=== PATIENT | male | born 1990 | race Caucasian/White ===

== ENCOUNTER 2018-08-30 14:31 | Emergency (ER) | payer OTHER, SELFPAY ==
[2018-08-30 14:36] VITALS: BP 138/87; PULSE 106; RESP 15; TEMP 39.2; O2SAT 96; BMI 24.3
--- NOTE | 2018-08-30 14:49 | ED_ITS ---
HPI - URI/Sore Throat <STEVEN Maddox - Last Filed: 08/30/18 21:50> General Chief Complaint: Upper Respiratory Symptoms Stated Complaint: SWOLLEN THROAT, CAN'T TAKE DEEP BREATHS Time Seen by Provider: 08/30/18 14:49 Source: patient Mode of arrival: ambulatory Limitations: no limitations History of Present Illness HPI Narrative: [age] year old healthy male that is an everyday smoker here for complaint of having sore throat fever and cough over the past 4 days. He reports that he has had swelling to the right side of his neck and also throat that is very discomfort below. He also reports that he has chills. Positive p.o. intake. He also states he has had a cough but is nonproductive. He denies any stressors relievers of his pain. MD Complaint: cough and sore throat Related Data Home Medications Medication Instructions Recorded Confirmed ibuprofen 1 dose PO PRN PRN 08/30/18 08/30/18 naproxen sodium [Aleve] 220 mg PO PRN PRN 08/30/18 08/30/18 Previous Rx's Medication Instructions Recorded amoxicillin-pot clavulanate 1 tab PO BID #20 tab 08/30/18 prednisone 40 mg PO DAILY #8 tab 08/30/18 Allergies Allergy/AdvReac Type Severity Reaction Status Date / Time No Known Drug Allergies Allergy Verified 08/30/18 14:35 Review of Systems <STEVEN Maddox - Last Filed: 08/30/18 21:50> Constitutional Reports chills, Denies fever(s), Denies lethargy and Denies weakness Eyes Denies change in vision, Denies eye discharge, Denies irritation and Denies loss of vision ENT Ears, Nose, Mouth, and Throat: Reports sore throat and Denies throat swelling Cardiovascular Denies chest pain, Denies irregular heart rhythm, Denies lightheadedness, Denies palpitations and Denies orthopnea Respiratory Reports cough and Denies wheezing Gastrointestinal Gastrointestinal: Denies abdominal pain, Denies change in bowel habits, Denies diarrhea, Denies nausea and Denies vomiting Genitourinary Denies hematuria, Denies flank pain, Denies urinary incontinence and Denies urinary urgency Musculoskeletal Denies back pain, Denies muscle weakness, Denies numbness and Denies tingling Integumentary/Breasts Denies pruritus, Denies erythema, Denies rash and Denies wounds Neurologic Denies confusion, Denies loss of vision, Denies numbness, Denies tingling and Denies weakness Psychiatric Denies anxiety, Denies confusion, Denies depression, Denies homicidal ideation and Denies suicidal ideation Endocrine Denies palpitations Hematologic/Lymphatic Denies easy bruising Allergic/Immunologic Denies urticaria, Denies throat swelling and Denies wheezing Exam <STEVEN Maddox - Last Filed: 08/30/18 21:50> Initial Vital Signs Initial Vital Signs: Vital Signs Temperature 102.5 F H 08/30/18 14:36 Pulse Rate 106 H 08/30/18 14:36 Respiratory Rate 15 08/30/18 14:36 Blood Pressure 138/87 08/30/18 14:36 Pulse Oximetry 96 08/30/18 14:36 Const General: cooperative and well developed Nutritional Appearance: well nourished Orientation: alert, awake, oriented x3 and not confused HENUT Mouth: oral mucosae normal and moist mucous membranes Throat: abnormal tonsil bilaterally erythema and hypertrophy and uvula laterally displaced to the left Eyes Conjunctivae: conjunctivae normal Sclera: sclerae normal Pupils: PERRL EOM: EOM intact bilaterally Resp Effort & Inspection: normal respiratory effort, able to speak in complete sentences, no respiratory distress and no use of accessory muscles Auscultation: clear to auscultation bilaterally, no rales, no rhonchi and no wheezes Cardio Rate: regular rate Rhythm: regular rhythm Heart Sounds: no click, no gallops, no murmurs and no rubs Skin General: no rashes or lesions noted, No jaundice and No petechiae Neuro General: alert, oriented x3, gait normal and no focal motor deficits Speech: speech normal <Nena Guzman DO - Last Filed: 08/31/18 08:34> Initial Vital Signs Initial Vital Signs: Vital Signs Temperature 102.5 F H 08/30/18 14:36 Pulse Rate 106 H 08/30/18 14:36 Respiratory Rate 15 08/30/18 14:36 Blood Pressure 138/87 08/30/18 14:36 Pulse Oximetry 96 08/30/18 14:36 Course <STEVEN Maddox - Last Filed: 08/30/18 21:50> Orders Ordered: Discontinued Medications Acetaminophen (Tylenol) 650 mg PO NOW ONE Stop: 08/30/18 15:29 Last Admin: 08/30/18 16:01 Dose: 650 mg Dexamethasone 20 mg/ Sodium (Chloride) 52 mls @ 208 mls/hr IV NOW ONE Stop: 08/30/18 15:29 Last Infusion: 08/30/18 16:29 Dose: 0 mls/hr Admin: 08/30/18 16:00 Dose: 208 mls/hr Sodium Chloride (Normal Saline 0.9%) 1,000 mls @ 1,000 mls/hr IV BOLUS ONE Stop: 08/30/18 16:27 Last Infusion: 08/30/18 17:23 Dose: 0 mls/hr Admin: 08/30/18 15:59 Dose: 1,000 mls/hr Sodium Chloride (Normal Saline 0.9%) 1,000 mls @ 1,000 mls/hr IV BOLUS ONE Stop: 08/30/18 16:27 Last Infusion: 08/30/18 18:04 Dose: 0 mls/hr Admin: 08/30/18 15:59 Dose: 1,000 mls/hr Ampicillin Sodium/Sulbactam (Sodium 3 gm/ Sodium Chloride) 100 mls @ 100 mls/ hr IV NOW ONE Stop: 08/30/18 15:33 Last Infusion: 08/30/18 17:23 Dose: 0 mls/hr Admin: 08/30/18 15:59 Dose: 100 mls/hr Vital Signs - 8 hr 08/30/18 14:36 08/30/18 17:09 08/30/18 18:15 Temperature 102.5 F H 98.8 F Pulse Rate 106 H 80 75 Respiratory Rate 15 14 18 Blood Pressure 138/87 Blood Pressure [Left Arm] 144/76 H 140/71 Pulse Oximetry 96 100 100 <Nena Guzman, - Last Filed: 08/31/18 08:34> Orders Ordered: Discontinued Medications Acetaminophen (Tylenol) 650 mg PO NOW ONE Stop: 08/30/18 15:29 Last Admin: 08/30/18 16:01 Dose: 650 mg Dexamethasone 20 mg/ Sodium (Chloride) 52 mls @ 208 mls/hr IV NOW ONE Stop: 08/30/18 15:29 Last Infusion: 08/30/18 16:29 Dose: 0 mls/hr Admin: 08/30/18 16:00 Dose: 208 mls/hr Sodium Chloride (Normal Saline 0.9%) 1,000 mls @ 1,000 mls/hr IV BOLUS ONE Stop: 08/30/18 16:27 Last Infusion: 08/30/18 17:23 Dose: 0 mls/hr Admin: 08/30/18 15:59 Dose: 1,000 mls/hr Sodium Chloride (Normal Saline 0.9%) 1,000 mls @ 1,000 mls/hr IV BOLUS ONE Stop: 08/30/18 16:27 Last Infusion: 08/30/18 18:04 Dose: 0 mls/hr Admin: 08/30/18 15:59 Dose: 1,000 mls/hr Ampicillin Sodium/Sulbactam (Sodium 3 gm/ Sodium Chloride) 100 mls @ 100 mls/ hr IV NOW ONE Stop: 08/30/18 15:33 Last Infusion: 08/30/18 17:23 Dose: 0 mls/hr Admin: 08/30/18 15:59 Dose: 100 mls/hr Vital Signs - 8 hr 08/30/18 14:36 08/30/18 17:09 08/30/18 18:15 Temperature 102.5 F H 98.8 F Pulse Rate 106 H 80 75 Respiratory Rate 15 14 18 Blood Pressure 138/87 Blood Pressure [Left Arm] 144/76 H 140/71 Pulse Oximetry 96 100 100 MDM - URI/Sore Throat <STEVEN Maddox - Last Filed: 08/30/18 21:50> Lab Data Point of Care Testing Rapid Strep A Positive MDM Narrative Medical decision making narrative: Strep test was obtained and was positive. Signs and symptoms presents as a [employer]. He was given fluids and antibiotics in the emergency room. He 20 of Decadron was given IV. He states that after fluids and Decadron he has feeling much better. He is placed on Augmentin and put on a prednisone for 5 days. Discussed case with Dr. stacey IQBAL who concurs with plan. Patient to follow up with ENT. Patient to call office tomorrow to schedule follow-up appointment. [id number] Tylenol or Motrin as needed for any discomfort. Salt water gargles. Plenty of fluids. Minimize smoking. For any worsening symptoms return emergency room. <Nena Guzman DO - Last Filed: 08/31/18 08:34> Lab Data Point of Care Testing Rapid Strep A Positive Discharge Plan Departure Patient Disposition: Home Clinical Impression: Abscess, peritonsillar Discharge Date/Time: 08/30/18 18:39 Interventions: ED Discharge Assessment Last Done: 08/30/18 18:39 Instructions: DI for Peritonsillar Abscess -- Adult Activity Restrictions/Additional Instructions: Strep test was obtained was positive for strep. Signs and symptoms are consistent with strep pharyngitis and peritonsillar abscess. UA given antibiotics in the emergency room along with steroids to decrease inflammation and fight infection. Urine be given prescription for oral antibiotics and steroids. Plenty of fluids and rest. Oral steroids were also prescribed to help with inflammation. Call into the office tomorrow to schedule follow-up appointment. For any worsening symptoms return to the emergency room. Prescriptions: New amoxicillin-pot clavulanate 875-125 mg tablet 1 tab PO BID Qty: 20 RF: 0 prednisone 20 mg tablet 40 mg PO DAILY Qty: 8 RF: 0 No Action naproxen sodium [Aleve] 220 mg Tablet 220 mg PO PRN PRN (Reason: Fever Or Pain) RF: 0 ibuprofen 200 mg Tablet 1 dose PO PRN PRN (Reason: Fever Or Pain) RF: 0 Referrals: Everardo Hardin MD [Physician] - <Nena Guzman DO - Last Filed: 08/31/18 08:34> Cosign ED Attending Cosignature Attestation: I was immediately available in the department for consultation, treatment plan was discussed. This documentation has been reviewed and I agree with assessment and plan. Supervised by Nena Guzman DO
--- NOTE | 2018-08-30 15:27 | DI.RAD.S_ITS ---
PROCEDURE: XR CHEST 2V INDICATIONS: Fever cough sore throat TECHNIQUE: 2 views of the chest were acquired. COMPARISON: [facility], , CHEST 2 VIEW, 04/22/2010, 20:37. FINDINGS: Surgical changes and devices: None. Lungs and pleura: No pleural effusions or pneumothorax. Lungs are clear. Mediastinum: Mediastinal contours are normal. Heart size is normal. Bones and chest wall: No suspicious bony abnormalities. Soft tissues appear unremarkable. IMPRESSION: No acute cardiopulmonary disease. Dictated by: Keke Rosas M.D. on 08/30/2018 at 16:35 Approved by: Keke Rosas M.D. on 08/30/2018 at 16:35
[2018-08-30] MEDS: AMPICILLIN/SULBACTAM 3 GM 3 GM in SODIUM CHLORIDE 0.9% 100 ML IV (15:59)
[2018-08-30] MEDS: SODIUM CHLORIDE 0.9% 1,000 ML 1000 ML IV ×2 (15:59)
[2018-08-30] MEDS: DEXAMETHASONE 20 MG in SODIUM CHLORIDE 0.9% 50 ML 208 ML IV (16:00)
[2018-08-30] MEDS: ACETAMINOPHEN 325 MG TABLET 650 MG PO (16:01)
[2018-08-30 17:09] VITALS: BP 144/76; PULSE 80; RESP 14; O2SAT 100
[2018-08-30 18:15] VITALS: BP 140/71; PULSE 75; RESP 18; TEMP 37.1; O2SAT 100
== END 2018-08-30 18:39 | disposition home or self-care (01) ==
PROVIDERS: Emergency Provider Nurse Practitioner Family
DX: J36 Peritonsillar abscess (principal)
CPT/HCPCS: 36591; 71046; 87880; 96361; 96365; 96366; 96368; 99283; 99284; J0295; J1100

== ENCOUNTER → 2019-04-08 06:20 | Outpatient (CLI) | payer OTHER, SELFPAY ==
--- NOTE | 2019-04-08 06:23 | DI.MRI.S_ITS ---
PROCEDURE: MR KNEE LT WO CON INDICATIONS: Left knee pain and swelling TECHNIQUE: Noncontrast sagittal PD fast spin echo and T2 fast spin echo with fat saturation, sagittal 3-D FLASH with fat saturation; coronal T1 spin echo and PD fast spin echo with fat saturation, and axial PD fast spin echo with fat saturation through the knee. COMPARISON: None. FINDINGS: Image quality: Excellent. Menisci: Truncated appearance involving anterior horn and body of medial meniscus is seen, suggestive of prior partial meniscectomy, suggest clinical correlation. There is no evidence of recurrent tear in remnant of medial meniscus. Lateral meniscus is intact. The meniscal root ligaments appear intact. Cruciate ligaments: The anterior and posterior cruciate ligaments appear intact. Medial structures: The medial collateral ligament appears intact. The posterior oblique ligament, semimembranosus tendon insertions, oblique popliteal ligament, and meniscocapsular junction appear intact. Visualized portions of the pes anserinus tendons appear normal. No abnormal bursal fluid. Lateral structures: The lateral collateral ligament, long and short heads of the biceps femoris tendon appear intact. The popliteus tendon appears normal; the popliteofibular ligament appears intact. The posterosuperior and anteroinferior popliteomeniscal fascicles appear intact. The arcuate and fabellofibular ligaments appear intact, on either side of the lateral inferior geniculate artery. Iliotibial band appears normal. Anterior structures: The quadriceps and patellar tendons appear intact. Patellar alignment is normal. No femoral trochlear dysplasia or ventral trochlear prominence. No edema in the infrapatellar fat pad. Bones and cartilage: No bone marrow contusions or fractures. The cartilage of the medial and lateral femorotibial compartments appears normal in thickness. Focal low to moderate grade chondromalacia involving the medial facet of patella cartilage is seen. There is also low-grade chondromalacia involving lateral facet of patella cartilage. Joint space: There is small amount of joint fluid. No gross loose body. A small popliteal cyst is seen.. Normal appearing synovial plicae are incidentally noted. IMPRESSION: 1. Finding is suggestive of prior partial medial meniscectomy. No evidence of recurrent tear in remnant of medial meniscus. 2. Cruciate ligaments are intact. 3. 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 No marrow edema. No fracture or dislocation. Small amount of joint effusion a small popliteal cyst. Dictated by: Sourav Caballero M.D. on 04/08/2019 at 9:00 Approved by: Sourav Caballero M.D. on 04/08/2019 at 9:04
== END ==
PROVIDERS: PCP Nurse Practitioner; Visit Provider Nurse Practitioner
DX: M25.562 Pain in left knee (principal); M22.42 Chondromalacia patellae, left knee; M71.22 Synovial cyst of popliteal space [Baker], left knee; M25.462 Effusion, left knee
CPT/HCPCS: 73721

== ENCOUNTER → 2019-04-10 13:20 | Outpatient (CLI) | payer OTHER, SELFPAY ==
[2019-04-10 13:39] LABS: Hemoglobin 16.9 g/dL (13.5-17.5); Mean Corpuscular HGB Conc 34.5 % (30-36); Mean Corpuscular Hemoglobin 32.4 PG (26-34); Mean Corpuscular Volume 93.8 fL (80-100); Platelet Count 200 X10^3/uL (150-400); Red Blood Cell Count 5.22 X10^6/uL (4.5-5.9); Red Cell Distribution Width 12.9 % (11.6-14.8)
[2019-04-10 13:59] LABS: Neutrophils Absolute Manual 3050 /uL (3000-5900); RBC Morphology Normal Morphology; Total Cells Counted 100
[2019-04-10 14:27] LABS: Alanine Aminotransferase 60 IU/L (21-72); Albumin 4.8 g/dL (3.5-5.0); Albumin Globulin Ratio 1.8 (1.0-2.8); Alkaline Phosphatase 68 U/L (38-126); Aspartate Aminotransferase 44 IU/L (17-59); Blood Urea Nitrogen 12 mg/dL (9-20); Calcium 9.8 mg/dL (8.4-10.2); Carbon Dioxide 24 mmol/L (22-32); Chloride 103 mmol/L (98-107); Cholesterol 268 mg/dL (140-199); Estimated Glomerular Filt Rate > 60.0 mL/min (>60); Globulin 2.7 g/dL (1.7-4.1); Glucose 97 mg/dL (70-100); HDL Cholesterol 57 mg/dL (40-60); HEMOLYSIS < 15 (0-50); LDL Cholesterol Calculated 179 mg/dL (<100); Potassium 4.1 mmol/L (3.4-5.1); Sodium 138 mmol/L (137-145); Total Protein 7.5 g/dL (6.3-8.2); Triglycerides 161 mg/dL (35-150)
[2019-04-10 14:56] LABS: TSH w/ Reflex to FT4 2.58 uIU/mL (0.47-4.68)
== END ==
PROVIDERS: PCP Nurse Practitioner; Visit Provider Nurse Practitioner
DX: F90.9 Attention-deficit hyperactivity disorder, unspecified type (principal); J36 Peritonsillar abscess; Z00.00 Encounter for general adult medical examination without abnormal findings
CPT/HCPCS: 36415; 80053; 80061; 84443; 85025

== ENCOUNTER 2020-10-22 13:49 | Emergency (ER) | payer OTHER, SELFPAY ==
[2020-10-22 14:03] VITALS: BP 140/88; PULSE 75; RESP 15; TEMP 36.8; O2SAT 99; BMI 25.8
--- NOTE | 2020-10-22 16:41 | PC.NURSE ---
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 The numbness is moving up his legs. He states that sensation is slightly more numb on his left leg than his right but notices more numbness on his right hand since he is right handed. He denies lightheadedness or dizziness but does have blurry vision in both eyes
--- NOTE | 2020-10-22 16:56 | ED_ITS ---
HPI - Extremity Problem General Chief complaint: Extremity Problem,Nontraumatic Stated complaint: numbness in hands and feet [id number] Time Seen by Provider: 10/22/20 15:51 Source: patient Mode of arrival: Ambulatory Limitations: no limitations History of Present Illness HPI Narrative: The patient is a 30-year-old male who presents with bilateral hand numbness in bilateral feet numbness. 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 He denies any recent injury. It started with bilateral hand is numbness he says it is getting difficult for him to right to get cards out of his wallet. He called to make an appointment with his doctor and then he started having bilateral foot numbness. He went to see his provider today who based on his symptoms did not see him but sent him straight to the emergency department for further evaluation. He actually says his feet numbness has gone up both of his legs. He denies any recent injury or illness. He has not had any nausea vomiting or diarrhea. He has had no recent immunizations. He has no other complaints. He has no difficulty walking or ambulating no balance problems. He says sometimes he moves and he feels a jolt from his toes to his head Pain Consistency: constant Location: upper extremity and lower extremity Quality: burning Relieving factors: nothing Exacerbating factors: nothing Related Data Home Medications Medication Instructions Recorded Confirmed ibuprofen 1 dose PO PRN PRN 08/30/18 10/22/20 naproxen sodium [Aleve] 220 mg PO PRN PRN 08/30/18 10/22/20 Previous Rx's Medication Instructions Recorded varenicline 0.5 mg (11)-1 mg (42) See Rx Instructions PO PER PKG DIR 03/29/19 tablets in a dose pack #53 each Allergies Allergy/AdvReac Type Severity Reaction Status Date / Time No Known Drug Allergies Allergy Verified 10/22/20 14:03 Review of Systems Review of Systems ROS Unobtainable: All systems reviewed & are unremarkable except as noted in HPI and below Constitutional Constitutional: Denies chills, Denies fever(s), Denies lethargy and Reports weakness ENT Ears, Nose, Mouth, and Throat: Denies disequilibrium Cardiovascular Cardiovascular: Denies chest pain, Denies irregular heart rhythm, Denies lightheadedness, Denies palpitations, Denies dyspnea, Denies dyspnea on exertion and Denies orthopnea Respiratory Respiratory: Denies cough, Denies dyspnea, Denies dyspnea on exertion and Denies wheezing Gastrointestinal Gastrointestinal: Denies abdominal pain, Denies change in bowel habits, Denies diarrhea, Denies nausea and Denies vomiting Musculoskeletal Musculoskeletal: Reports as per HPI and Reports numbness Integumentary/Breasts Skin/Breast: Denies pruritus, Denies erythema, Denies rash and Denies wounds Neurologic Neurologic: Reports numbness, Denies disequilibrium and Reports weakness Endocrine Endocrine: Denies palpitations Hematologic/Lymphatic Hematologic/Lymphatic: Denies easy bruising Allergic/Immunologic Allergic/Immunologic: Denies wheezing Patient History Medical History ADHD (~2011) Chronic back pain (~2001) Foot pain (~2012) Plantar fasciitis Shoulder pain (~2014) Family History Father Cancer Hypertension Stroke Mother Hypertension Mental health problem Social History Smoking Status: Current every day smoker Tobacco: How many years used: 12 quit status: considering quitting second hand exposure: No alcohol intake: current ([employer]) substance use type: does not use Smoking Status: Current every day smoker alcohol intake frequency: a few times a month Substance Use Type: does not use Exam Initial Vital Signs Initial Vital Signs: Vital Signs Temperature 98.3 F 10/22/20 14:03 Pulse Rate 75 10/22/20 14:03 Respiratory Rate 15 10/22/20 14:03 Blood Pressure 140/88 10/22/20 14:03 Pulse Oximetry 99 10/22/20 14:03 GENERAL: Well-appearing, well-nourished and in no acute distress. HEENT: Head atraumatic,EOMI, pupils reactive, face symmetric, moist mucous membranes NECK: No vertebral tenderness full flexion extension and rotation CARDIOVASCULAR: Regular rate and rhythm without murmurs, rubs or gallops. RESPIRATORY: Breath sounds equal bilaterally, no wheezes rales or rhonchi. ABDOMEN: Soft, nontender. Normoactive bowel sounds all 4 quadrants. No guarding or rebound. EXTREMITIES: Normal range of motion, no clubbing or edema. Neurovascularly int act NEUROLOGICAL: Alert and oriented x4.Normal gait and speech. Cranial nerves II through XII grossly intact. Good [id number]-sthm, good hgil-cv-soro, strength equal bilaterally, no dysarthria or aphasia, , no visual changes, no facial droop he does have difficult time getting a card out of his wallet fine motor seems to be decreased in his hands. He has slight decreased of soft touch in the lower extremities. DTR 2/4 all 4 extremities SKIN: Warm, dry, no laceration, no petechiae, no rashes or lesions. Course Orders Ordered: ED Orders 10/22/20 17:11 CT cervical spine wo con Stat 10/22/20 17:41 Complete Blood Count AUTO DIFF Stat Comprehensive Metabolic Panel Stat Vital Signs Vital signs: Vital Signs - 8 hr 10/22/20 14:03 10/22/20 19:04 Temperature 98.3 F Pulse Rate 75 71 Respiratory Rate 15 12 Blood Pressure 140/88 159/89 H Pulse Oximetry 99 97 MDM - Extremity (Nontraumatic) Lab Data Result diagrams: 10/22/20 17:41 10/22/20 17:41 Labs: Lab Results 10/22/20 10/22/20 Range/Units 17:41 17:41 WBC 6.3 (4.5-11.0) X10^3/uL RBC 4.65 (4.5-5.9) X10^6/uL Hgb 15.4 (13.5-17.5) g/dL Hct 44.1 (41-53) % MCV 94.9 (80-100) fL MCH 33.1 (26-34) PG MCHC 34.8 (30-36) % RDW 13.4 (11.6-14.8) % Plt Count 208 (150-400) X10^3/uL Neut % (Auto) 60.7 (50-75) % Lymph % (Auto) 30.8 (25-40) % Banks % (Auto) 5.1 (3-14) % Eos % (Auto) 3.0 (2-4) % Baso % (Auto) 0.4 (0-2) % Neut # (Auto) 3800 (6172-2737) /uL Lymph # (Auto) 1900 (5895-3046) /uL Banks # (Auto) 300 (0-900) /uL Eos # (Auto) 200 (0-450) /uL Baso # (Auto) 0 (0-100) /uL Sodium 137 (137-145) mmol/L Potassium 4.0 (3.4-5.1) mmol/L Chloride 103 (98-107) mmol/L Carbon Dioxide 29 (22-32) mmol/L BUN 21 H (9-20) mg/dL Creatinine 0.90 (0.66-1.25) mg/dL Estimated GFR > 60.0 (>60) mL/min BUN/Creatinine Ratio 23.3 H (6-22) Glucose 113 H (70-100) mg/dL Calcium 9.3 (8.4-10.2) mg/dL Total Bilirubin 0.3 (0.2-1.3) mg/dL AST 26 (17-59) IU/L ALT 25 (<50) IU/L Alkaline Phosphatase 64 (38-126) U/L Total Protein 7.4 (6.3-8.2) g/dL Albumin 4.5 (3.5-5.0) g/dL Globulin 2.9 (1.7-4.1) g/dL Albumin/Globulin Ratio 1.6 (1.0-2.8) Imaging Data CT - cervical spine: Radiologist's Impression: PROCEDURE: CT CERVICAL SPINE WO CON INDICATIONS: bilateral hand numbness no injury TECHNIQUE: Noncontrast 3 mm thick sections acquired from the skull base to the T4 level. Sagittal and coronal reformats were then constructed. For radiation dose reduction, the following was used: automated exposure control, adjustment of mA and/or kV according to patient size. COMPARISON: None. FINDINGS: Image quality: Excellent. Bones: No fractures or dislocations. Visualized superior ribs are intact. Soft tissues: Prevertebral soft tissues are normal in thickness. No paravertebral hematomas. No apical pneumothoraces. IMPRESSION: No fracture. Nonemergent outpatient follow-up cervical spine MRI is recommended for further assessment. Dictated by: Jona Acosta M.D. on 10/22/2020 at 17:34 MDM Narrative Medical decision making narrative: Patient does have some obvious fine motor problems with his hands. He does have some ascending numbness and tingling but not weakness of his lower extremities. At this time it is been ongoing for a number of weeks but does seem to be progressing. Blood work is overall reassuring. I do recommend that he have MRI of his entire spine including cervical thoracic and lumbar as an outpatient. He may require further workup as well. Differential diagnosis includes Guillain-Southington, MS, transient myelitis. Does not seem to be the right pattern for Guillain-Southington starting in the hands although it can. Discussed case with Dr. Sparrow who will send his provider cherrie for close follow-up with patient I discussed all findings with the patient, Education has been performed regarding treatment plan, diagnosis, warning signs and symptoms and all concerns have been addressed. Verbally agree with and understood all of the above. Discharge Plan Departure Patient Disposition: Home Clinical Impression: Peripheral neuropathy Qualifiers: Peripheral neuropathy type: polyneuropathy, other Qualified Code(s): G62.89 - Other specified polyneuropathies Instructions: DI for Peripheral Neuropathy Activity Restrictions/Additional Instructions: *You have been diagnosed with peripheral neuropathy *What to do: At this time I recommend he follow up with her primary care provider and have MRI of your full spine urgent only. Please monitor for any worsening weakness, numbness or tingling *Continue to take medications as directed *Follow up with your primary care provider in 2-3 days *Return to ER if you should have increasing weakness inability to hold objects in hands, progressive numbness tingling or weakness going up both legs, loss of stool or urine or any new, worsening or concerning symptoms Prescriptions: No Action Chantix Starting Month Box 0.5 mg (11)- 1 mg (42) tablets,dose pack See Rx Instructions PO PER PKG DIR Qty: 53 RF: 0 naproxen sodium [Aleve] 220 mg Tablet 220 mg PO PRN PRN (Reason: Fever Or Pain) RF: 0 ibuprofen 200 mg Tablet 1 dose PO PRN PRN (Reason: Fever Or Pain) RF: 0 Referrals: Naye Mendoza ARNP [Primary Care Provider] -
--- NOTE | 2020-10-22 17:11 | DI.CT.S_ITS ---
PROCEDURE: CT CERVICAL SPINE WO CON INDICATIONS: bilateral hand numbness no injury TECHNIQUE: Noncontrast 3 mm thick sections acquired from the skull base to the T4 level. Sagittal and coronal reformats were then constructed. For radiation dose reduction, the following was used: automated exposure control, adjustment of mA and/or kV according to patient size. COMPARISON: None. FINDINGS: Image quality: Excellent. Bones: No fractures or dislocations. Visualized superior ribs are intact. Soft tissues: Prevertebral soft tissues are normal in thickness. No paravertebral hematomas. No apical pneumothoraces. IMPRESSION: No fracture. Nonemergent outpatient follow-up cervical spine MRI is recommended for further assessment. Dictated by: Jona Acosta M.D. on 10/22/2020 at 17:34 Approved by: Jona Acosta M.D. on 10/22/2020 at 17:36
[2020-10-22 17:47] LABS: Add Manual Diff / Slide Review NO; Basophils Absolute Auto 0 /uL (0-100); Basophils Percent Auto 0.4 % (0-2); Eosinophils Absolute Auto 200 /uL (0-450); Hematocrit 44.1 % (41-53); Hemoglobin 15.4 g/dL (13.5-17.5); Lymphocytes Absolute Auto 1900 /uL (1100-4500); Lymphocytes Percent Auto 30.8 % (25-40); Mean Corpuscular HGB Conc 34.8 % (30-36); Mean Corpuscular Hemoglobin 33.1 PG (26-34); Mean Corpuscular Volume 94.9 fL (80-100); Monocytes Absolute Auto 300 /uL (0-900); Monocytes Percent Auto 5.1 % (3-14); Neutrophils Absolute Auto 3800 /uL (1500-7000); Neutrophils Percent Auto 60.7 % (50-75); Platelet Count 208 X10^3/uL (150-400); Red Blood Cell Count 4.65 X10^6/uL (4.5-5.9); Red Cell Distribution Width 13.4 % (11.6-14.8); White Blood Cell Count 6.3 X10^3/uL (4.5-11.0)
[2020-10-22 18:02] LABS: Alanine Aminotransferase 25 IU/L (<50); Albumin 4.5 g/dL (3.5-5.0); Albumin Globulin Ratio 1.6 (1.0-2.8); Alkaline Phosphatase 64 U/L (38-126); Aspartate Aminotransferase 26 IU/L (17-59); BUN Creatinine Ratio 23.3 (6-22); Bilirubin Total 0.3 mg/dL (0.2-1.3); Blood Urea Nitrogen 21 mg/dL (9-20); Calcium 9.3 mg/dL (8.4-10.2); Carbon Dioxide 29 mmol/L (22-32); Chloride 103 mmol/L (98-107); Estimated Glomerular Filt Rate > 60.0 mL/min (>60); Globulin 2.9 g/dL (1.7-4.1); Glucose 113 mg/dL (70-100); HEMOLYSIS < 15 (0-50); Sodium 137 mmol/L (137-145); Total Protein 7.4 g/dL (6.3-8.2)
[2020-10-22 19:04] VITALS: BP 159/89; PULSE 71; RESP 12; O2SAT 97
== END 2020-10-22 19:06 | disposition home or self-care (01) ==
PROVIDERS: Emergency Provider Emergency Medicine; PCP Nurse Practitioner
DX: G62.89 Other specified polyneuropathies (principal); R53.1 Weakness
CPT/HCPCS: 36415; 72125; 80053; 85025; 99281; 99284

== ENCOUNTER → 2020-10-24 08:10 | Outpatient (CLI) | payer OTHER, SELFPAY ==
[2020-10-24 09:11] LABS: Cholesterol 220 mg/dL (140-199); HDL Cholesterol 41 mg/dL (40-60); LDL Cholesterol Calculated 149 mg/dL (<100); Triglycerides 149 mg/dL (35-150)
[2020-10-24 09:24] LABS: Free T4, Direct Thyroxine 0.87 ng/dL (0.78-2.19)
[2020-10-24 09:38] LABS: Thyroid Stimulating Hormone 1.82 uIU/mL (0.47-4.68)
== END ==
PROVIDERS: PCP Nurse Practitioner; Referring Provider Nurse Practitioner; Visit Provider Nurse Practitioner
DX: Z00.00 Encounter for general adult medical examination without abnormal findings (principal)
CPT/HCPCS: 36415; 80061; 84439; 84443; 84481

== ENCOUNTER → 2020-10-28 16:38 | Outpatient (CLI) | payer OTHER, SELFPAY ==
--- NOTE | 2020-10-28 16:41 | DI.MRI.S_ITS ---
PROCEDURE: MR CERVICAL SPINE WO/W CON INDICATIONS: worsening neuropathic pain TECHNIQUE: Noncontrast sagittal T1 spin echo and T2 fast spin echo, sagittal STIR, foraminal oblique sagittal T2 fast spin echo, axial gradient echo or T2 fast spin echo through the cervical spine. After the administration of contrast, axial and sagittal T1 spin echo with fat saturation through the cervical spine. COMPARISON: None. FINDINGS: Image quality: Excellent. Alignment and curvature: There is normal bony alignment. Marrow: Marrow is normal in overall signal, without suspicious enhancement. Spinal cord: Visualized spinal cord appears mildly prominent within the proximal and midportion. There is increased T2 signal within the posterior aspect of the cord from the level of C1 through C5. It is nonenhancing. No cerebellar tonsillar herniation. No abnormal intramedullary enhancement. Paraspinous soft tissues: No paravertebral masses or suspicious enhancement. C2-3: No disc bulge, spinal stenosis or foraminal narrowing. C3-4: Minimal disc bulge without spinal stenosis. Mild right foraminal narrowing. C4-5: Mild disc bulge without spinal stenosis. Mild bilateral foraminal narrowing. C5-6: Minimal disc bulge without spinal stenosis. Mild bilateral foraminal narrowing. C6-7: No disc bulge or spinal stenosis. Minimal left and [id number] right foraminal narrowing. C7-T1: No disc bulge, spinal stenosis or foraminal narrowing. IMPRESSION: 1. Nonenhancing increased signal within the proximal and midportion of the cervical cord within appearance of increased cord size. Appearance raises significant concern for demyelinating disease. MRI brain with MS protocol is recommended for further evaluation. 2. Multilevel minimal to mild foraminal narrowing as above. 3. Minimal to mild disc bulges from C3-4 through C5-6. Dictated by: Jackelin Garrido M.D. on 10/28/2020 at 17:40 Approved by: Jackelin Garrido M.D. on 10/28/2020 at 17:45
== END ==
PROVIDERS: PCP Nurse Practitioner; Referring Provider Nurse Practitioner; Visit Provider Nurse Practitioner
DX: G62.9 Polyneuropathy, unspecified (principal); R20.0 Anesthesia of skin; R20.2 Paresthesia of skin
CPT/HCPCS: 72156

== ENCOUNTER → 2020-11-04 16:43 | Outpatient (CLI) | payer OTHER, SELFPAY ==
--- NOTE | 2020-11-04 16:47 | DI.MRI.S_ITS ---
PROCEDURE: MR HEAD/BRAIN WO/W CON INDICATIONS: Abnormal spine MRI, Bilateral hand and feet numbness TECHNIQUE: Noncontrast sagittal and axial FLAIR, axial and coronal T2 fast spin echo, axial VIBE, axial gradient echo, axial diffusion and ADC through the brain. After the administration of contrast, axial and coronal VIBE with fat saturation through the brain. COMPARISON: [facility], MR, MR CERVICAL SPINE WO/W CON, 10/28/2020, 17:16. FINDINGS: Image quality: Excellent. CSF spaces: Ventricles are normal in size and shape. Basal cisterns are patent. No extra-axial fluid collections. Brain: No intracranial hemorrhage, mass, or mass effect. Thompson-white matter interface appears preserved. No suspicious white matter lesions. No abnormal intracranial enhancement. Diffusion weighted images demonstrate no acute infarcts. Brainstem appears normal. Normal intravascular flow voids are present. Skull and face: Calvarial marrow signal is normal. Orbits appear normal. Sinuses: There is mild mucosal thickening within the ethmoid sinuses. Mastoid air cells are clear. IMPRESSION: 1. No acute intracranial abnormality. 2. No white matter lesions to suggest demyelinating disease. Dictated by: Domingo Xie M.D. on 11/04/2020 at 17:30 Approved by: Domingo Xie M.D. on 11/04/2020 at 17:33
== END ==
PROVIDERS: PCP Nurse Practitioner; Referring Provider Nurse Practitioner; Visit Provider Nurse Practitioner
DX: R93.7 Abnormal findings on diagnostic imaging of other parts of musculoskeletal system (principal); R20.2 Paresthesia of skin
CPT/HCPCS: 70553

== ENCOUNTER → 2023-06-22 12:35 | Outpatient (CLI) | payer OTHER, SELFPAY ==
--- NOTE | 2023-06-22 12:39 | DI.RAD.S_ITS ---
PROCEDURE: XR CHEST 2V INDICATIONS: cough 4-5 months TECHNIQUE: 2 views of the chest were acquired. COMPARISON: [facility], CR, XR CHEST 2V, 08/30/2018, 15:36. FINDINGS: Surgical changes and devices: None. Lungs and pleura: Lungs are clear. No pleural effusions or pneumothorax. Mediastinum: Mediastinal contours are normal. Heart size is normal. Bones and chest wall: No suspicious bony abnormalities. Soft tissues appear unremarkable. IMPRESSION: No acute cardiopulmonary abnormality is seen. Dictated by: Yojana Devine MD, PhD on 06/22/2023 at 13:37 Approved by: Yojana Devine MD, PhD on 06/22/2023 at 13:37
[2023-06-22 14:53] LABS: Add Manual Diff / Slide Review NO; Basophils Absolute Auto 0 /uL (0-100); Basophils Percent Auto 0.5 % (0-2); Eosinophils Absolute Auto 200 /uL (0-450); Eosinophils Percent Auto 3.1 % (2-4); Hematocrit 47.3 % (41-53); Hemoglobin 16.3 g/dL (13.5-17.5); Lymphocytes Absolute Auto 1800 /uL (1100-4500); Lymphocytes Percent Auto 25.6 % (25-40); Mean Corpuscular HGB Conc 34.5 % (30-36); Mean Corpuscular Hemoglobin 33.3 PG (26-34); Mean Corpuscular Volume 96.5 fL (80-100); Monocytes Absolute Auto 500 /uL (0-900); Neutrophils Absolute Auto 4500 /uL (1500-7000); Neutrophils Percent Auto 63.8 % (50-75); Platelet Count 231 X10^3/uL (150-400); Red Cell Distribution Width 13.1 % (11.6-14.8); White Blood Cell Count 7.1 X10^3/uL (4.5-11.0)
[2023-06-22 15:20] LABS: Alanine Aminotransferase 122 IU/L (<50); Albumin 4.8 g/dL (3.5-5.0); Albumin Globulin Ratio 1.5 (1.0-2.8); Alkaline Phosphatase 69 U/L (38-126); Aspartate Aminotransferase 75 IU/L (17-59); BUN Creatinine Ratio 14.3 (6-22); Bilirubin Total 0.4 mg/dL (0.2-1.3); Blood Urea Nitrogen 12 mg/dL (9-20); Calcium 9.8 mg/dL (8.4-10.2); Carbon Dioxide 25 mmol/L (22-32); Chloride 100 mmol/L (98-107); Cholesterol 276 mg/dL (140-199); Estimated Glomerular Filt Rate > 60 mL/min (>60); Globulin 3.2 g/dL (1.7-4.1); Glucose 97 mg/dL (70-100); HDL Cholesterol 37 mg/dL (40-60); Potassium 3.8 mmol/L (3.4-5.1); Sodium 137 mmol/L (137-145)
[2023-06-22 15:29] LABS: HEMOLYSIS < 15 (0-50)
[2023-06-22 15:36] LABS: Triglycerides 684 mg/dL (35-150)
[2023-06-22 20:34] LABS: Lipase 101 U/L (23-300)
[2023-06-22 20:45] LABS: LDL Cholesterol Direct 123 mg/dL (<100)
== END ==
PROVIDERS: PCP Nurse Practitioner; Referring Provider Family Medicine; Visit Provider Family Medicine
DX: F17.200 Nicotine dependence, unspecified, uncomplicated (principal); I10 Essential (primary) hypertension; F90.9 Attention-deficit hyperactivity disorder, unspecified type; F32.A Depression, unspecified; R74.01 Elevation of levels of liver transaminase levels; R10.10 Upper abdominal pain, unspecified; E78.5 Hyperlipidemia, unspecified
CPT/HCPCS: 36415; 71046; 80053; 80061; 83690; 83721; 85025

== ENCOUNTER → 2023-06-29 08:22 | Outpatient (CLI) | payer OTHER, SELFPAY ==
--- NOTE | 2023-06-29 08:23 | DI.US.S_ITS ---
PROCEDURE: US ABDOMEN COMPLETE INDICATIONS: UPPER ABDOMEN PAIN TECHNIQUE: Real-time scanning was performed of the abdominal and retroperitoneal organs, with image documentation. COMPARISON: None. FINDINGS: Liver: The liver measures 20.4 cm in length and demonstrates increased echogenicity. Gallbladder: The gallbladder wall measures 2.2 mm in diameter. No stones, sludge, pericholecystic fluid, or sonographic Casper sign. Biliary ducts: Intrahepatic bile ducts are non-dilated. Extrahepatic bile duct caliber measures 4.7 mm. Normal is 6-7 mm or less in diameter, or 10 mm or less post-cholecystectomy. Pancreas: Visualized portions of the pancreas are sonographically normal. Spleen: Spleen is normal in size and homogeneous in echotexture. Kidneys: Kidneys are normal in size and echotexture. Right kidney measures 10.8 cm long; left kidney measures 10.1 cm long. No hydronephrosis or nephrolithiasis. No solid masses. Aorta: Visualized aorta is normal in caliber at less than 3 cm. Iliacs: Proximal common iliac arteries are normal in caliber at less than 2.5 cm. IVC: Intrahepatic inferior vena cava is patent. Miscellaneous: No free abdominal fluid. There is an echogenic mass in the subcutaneous tissues overlying mid sternum which measures 0.5 x 0.3 x 0.4 cm. No vascularity. This corresponds as palpated. IMPRESSION: 1. Increased hepatic echogenicity noted likely related to fatty infiltration of the liver but other sources of hepatocellular disease cannot be excluded. 2. No cholelithiasis or findings to suggest choledocholithiasis or acute cholecystitis. 3. Echogenic mass in the subcutaneous tissues overlying the sternum which corresponds as palpated. Findings suggest a small area of fat necrosis. Dictated by: Teresa Joseph M.D. on 06/29/2023 at 12:30 Approved by: Teresa Joseph M.D. on 06/29/2023 at 12:34
== END ==
PROVIDERS: PCP Nurse Practitioner; Referring Provider Family Medicine; Visit Provider Family Medicine
DX: R10.10 Upper abdominal pain, unspecified (principal); E78.5 Hyperlipidemia, unspecified; R74.01 Elevation of levels of liver transaminase levels; R22.2 Localized swelling, mass and lump, trunk
CPT/HCPCS: 76700

== ENCOUNTER → 2024-03-26 13:30 | Outpatient (CLI) | payer OTHER, SELFPAY ==
--- NOTE | 2024-03-26 13:32 | DI.RAD.S_ITS ---
PROCEDURE: XR ELBOW RT MIN 3V INDICATIONS: right elbow pain after trauma TECHNIQUE: 3 views of the elbow were acquired. COMPARISON: None. FINDINGS: Bones: No fractures or dislocations. No suspicious bony lesions. Soft tissues: No elbow joint effusion. No suspicious soft tissue calcifications. IMPRESSION: No acute bony abnormality or significant joint effusion. Dictated by: Jovani Gordon M.D. on 03/26/2024 at 16:10 Approved by: Jovani Gordon M.D. on 03/26/2024 at 16:13
== END ==
PROVIDERS: PCP Nurse Practitioner; Referring Provider Nurse Practitioner; Visit Provider Nurse Practitioner
DX: M25.521 Pain in right elbow (principal)
CPT/HCPCS: 73080

== ENCOUNTER → 2024-09-19 16:34 | Outpatient (CLI) | payer OTHER, SELFPAY ==
[2024-09-19 17:43] LABS: Add Manual Diff / Slide Review NO; Basophils Absolute Auto 0 /uL (0-100); Basophils Percent Auto 0.5 % (0-2); Eosinophils Absolute Auto 200 /uL (0-450); Eosinophils Percent Auto 3.3 % (2-4); Hemoglobin 15.6 g/dL (13.5-17.5); Lymphocytes Absolute Auto 2100 /uL (1100-4500); Mean Corpuscular HGB Conc 33.9 % (30-36); Mean Corpuscular Hemoglobin 32.7 PG (26-34); Mean Corpuscular Volume 96.4 fL (80-100); Monocytes Absolute Auto 500 /uL (0-900); Monocytes Percent Auto 7.1 % (3-14); Neutrophils Absolute Auto 4000 /uL (1500-7000); Neutrophils Percent Auto 58.1 % (50-75); Platelet Count 251 X10^3/uL (150-400); Red Blood Cell Count 4.78 X10^6/uL (4.5-5.9); Red Cell Distribution Width 12.8 % (11.6-14.8); White Blood Cell Count 6.9 X10^3/uL (4.5-11.0)
[2024-09-19 18:15] LABS: Alanine Aminotransferase 56 IU/L (<50); Albumin 5.1 g/dL (3.5-5.0); Albumin Globulin Ratio 1.7 (1.0-2.8); Alkaline Phosphatase 52 U/L (38-126); Aspartate Aminotransferase 51 IU/L (17-59); BUN Creatinine Ratio 15.9 (6-22); Bilirubin Total 0.6 mg/dL (0.2-1.3); Blood Urea Nitrogen 14 mg/dL (9-20); Calcium 9.6 mg/dL (8.4-10.2); Carbon Dioxide 28 mmol/L (22-32); Chloride 101 mmol/L (98-107); Cholesterol 265 mg/dL (140-199); Estimated Glomerular Filt Rate > 60 mL/min (>60); Glucose 94 mg/dL (70-100); HDL Cholesterol 57 mg/dL (40-60); HEMOLYSIS < 15 (0-50); LDL Cholesterol Calculated 177 mg/dL (<100); Sodium 136 mmol/L (137-145); Total Protein 8.1 g/dL (6.3-8.2); Triglycerides 154 mg/dL (35-150)
[2024-09-19 18:32] LABS: TSH w/ Reflex to FT4 2.37 uIU/mL (0.47-4.68)
== END ==
PROVIDERS: PCP Internal Medicine; Referring Provider Internal Medicine; Visit Provider Internal Medicine
DX: I10 Essential (primary) hypertension (principal); E78.5 Hyperlipidemia, unspecified; R74.01 Elevation of levels of liver transaminase levels; D64.9 Anemia, unspecified; E03.9 Hypothyroidism, unspecified
CPT/HCPCS: 36415; 80053; 80061; 84443; 85025

== ENCOUNTER → 2025-02-06 15:26 | Outpatient (CLI) | payer OTHER, SELFPAY ==
--- NOTE | 2025-02-06 15:28 | DI.RAD.S_ITS ---
PROCEDURE: XR KNEE RT 3V INDICATIONS: Right knee injury L and I TECHNIQUE: 3 views of the knee were acquired. COMPARISON: None. FINDINGS: Bones: No fractures or dislocations. No suspicious bony lesions. Soft tissues: Small joint effusion. No suspicious soft tissue calcifications. IMPRESSION: No acute bony abnormality. Small joint effusion. Internal derangement not excluded. Dictated by: Jd Torres M.D. on 02/06/2025 at 16:25 Approved by: Jd Torres M.D. on 02/06/2025 at 16:26
== END ==
PROVIDERS: PCP Internal Medicine; Referring Provider Internal Medicine; Visit Provider Physician Assistant
DX: S86.911A Strain of unspecified muscle(s) and tendon(s) at lower leg level, right leg, initial encounter (principal); M25.461 Effusion, right knee; X58.XXXA Exposure to other specified factors, initial encounter
CPT/HCPCS: 73562